=== PATIENT | male | born 1965 | race Caucasian/White ===

== ENCOUNTER 2019-08-02 08:41 | Day surgery (SDC) | payer BC, OTHER ==
[~2019-08-02 08:41] MED LIST: DEXAMETHASONE SOD PHOSPHATE 10 MG/ML 1 ML VIAL IV ONE; FAMOTIDINE 20 MG/2 ML VIAL IV ONE; HYDROmorphone 0.5 MG/0.5 ML SYRINGE IVP PRN; LACTATED RINGERS 1,000 ML IV SCH; LIDOCAINE 1% (10MG/ML) FOR IV START INTRADERMA PRN; ONDANSETRON 4 MG/2 ML VIAL IVP ONE; metroNIDAZOLE-NS PMX 500 MG in SALINE 1 100ML.BAG IVPB ONE
[2019-08-02 09:04] VITALS: TEMP 97.2
[2019-08-02] MEDS ORDERED: PROPOFOL 10 MG/ML 20 ML VIAL IV ONE (10:20)
[2019-08-02] MEDS ORDERED: LIDOCAINE 1% INJ 10MG/ML (20 ML MDV) ONE (10:20)
[2019-08-02] MEDS ORDERED: MIDAZOLAM 2 MG/2 ML VIAL ONE (10:20)
[2019-08-02] MEDS ORDERED: fentaNYL (PF) 50 MCG/ML 2 ML AMP ONE (10:20)
[2019-08-02] MEDS ORDERED: SUCCINYLCHOLINE CHLORIDE 100 MG/5 ML SYR IV ONE (10:20)
[2019-08-02] MEDS ORDERED: LIDOCAINE 1%-EPI 1:100,000 20 ML VIAL SQ ONE ×2 (10:50)
--- NOTE | 2019-08-02 11:20 | P.OP ---
Date of Procedure: 08/02/19 Preoperative Diagnosis: Soft palate mass, right side Postoperative Diagnosis: Same Procedure(s) Performed: Excision of a 1.1 cm right soft palate mass with mucosal flap closure Anesthesia: CELESTINAA Surgeon: Wali Harper Estimated Blood Loss (ml): 5 Pathology: other (Soft palate mass) Condition: stable Disposition: PACU Indications for Procedure: Patient developed a mass of the right soft palate which is been problematic. He is requesting have this removed. He's concerned about possible malignancy. Operative Findings: Mass right soft palate verruca soon etiology Description of Procedure: Patient was taken to the operative room and placed in the supine position. A general inhalation anesthetic was administered and the patient was monitored throughout the entire case by the department of anesthesia and was intubated. The mouth was opened with a McIvor mouthgag utilizing a #3 blade. This mass was identified and grasped with a DeBakey's. We anesthetized the area with lidocaine and Marcaine combination and we excised the lesion with use of cauterization leaving a defect of the soft palate. We then elevated posterior and anterior advancement flaps and then mucosal flaps were rotated and closed with use of a 5.0 rapid Vicryl. Excellent closure was obtained the patient tolerated this well and follow-up will be in the office in 1 week.
[2019-08-02] MEDS ORDERED: ACETAMINOPHEN TAB 500 MG TAB PO ONE (12:30)
[2019-08-02] MEDS ORDERED: MELOXICAM 7.5 MG TAB PO ONE (12:31)
[2019-08-02 13:02] VITALS: BP 118/64; PULSE 70; RESP 20
== END 2019-08-02 12:55 | disposition home or self-care (01) ==
LOC: OR 08:41
PROVIDERS: ATTEND Otolaryngology
DX: D10.39 Benign neoplasm of other parts of mouth (principal); J34.2 Deviated nasal septum; J34.3 Hypertrophy of nasal turbinates; J31.0 Chronic rhinitis; Z87.891 Personal history of nicotine dependence; Z79.899 Other long term (current) drug therapy; Z98.890 Other specified postprocedural states; Z79.1 Long term (current) use of non-steroidal anti-inflammatories (NSAID); Z90.89 Acquired absence of other organs; Z82.49 Family history of ischemic heart disease and other diseases of the circulatory system; Z83.79 Family history of other diseases of the digestive system; Z80.9 Family history of malignant neoplasm, unspecified
CPT/HCPCS: 88305; 40814; J2250; J1100; J2405; J2001; J3010; J0330; J2704

== ENCOUNTER 2021-02-13 13:15 | Emergency (ER) | payer BC, OTHER ==
[2021-02-13 13:22] VITALS: TEMP 98
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
[2021-02-13 14:33] VITALS: BP 123/78; PULSE 74; RESP 20
== END 2021-02-13 14:33 | disposition home or self-care (01) ==
LOC: EC 13:15
DX: R51.9 Headache, unspecified (principal); V49.50XA Passenger injured in collision with unspecified motor vehicles in traffic accident, initial encounter; Y92.410 Unspecified street and highway as the place of occurrence of the external cause
CPT/HCPCS: 70450; 99284

== ENCOUNTER → 2022-12-08 | Outpatient (CLI) | payer BC ==
--- NOTE | 2022-12-08 17:48 | P.SLEEP ---
History of Present Illness DATE: 12/08/2022 CONSULTATION/NEW PATIENT EVALUATION HISTORY OF PRESENT ILLNESS/SLEEP-WAKE EVALUATION: 57 year old gentleman had been evaluated in the sleep center for possible obstructive sleep apnea hypopnea syndrome. SLEEP SCHEDULE: Usually sleep schedule from 10:20 PM until 6 AM on weekdays and from 11 PM to 8 AM on weekend. FALLING ASLEEP: No problems with falling asleep. DURING SLEEP: Patient has loud snoring and witnessed episodes of stop breathing during the sleep. Patient wakes up from sleep 2 times with one episode of nocturia, episodes of dry mouth, heartburn and gasping for air. No history of hypnogogical hallucinations, sleep paralysis, or cataplexy. DURING THE DAY/WAKE STATE: During the day patient may have episodes of irritability, anxiety. [place] sleepiness scale is 8. Patient usually doesn't take naps. PAST MEDICAL HISTORY: Acid reflux, throat and skin cancer- basal cell carcinoma. PAST SURGICAL HISTORY: Surgical treatment of throat cancer and skin cancer. MEDICATIONS: Fluticasone, tadalafeel. SOCIAL HISTORY: Positive history of smoking for 15 pack years, quit in 1998, alcohol consumption occasional. FAMILY HISTORY:Hypertension, heart problems, insomnia, arthritis. REVIEW OF SYSTEMS:Snoring, awakenings from sleep with nocturia. No fevers. No double vision. No recent chest pain. No shortness of breath. No abdominal pain. No bleeding episodes. No blood in urine. No seizure episodes. PHYSICAL EXAMINATION: GENERAL: A pleasant patient without any distress. VITAL SIGNS: BP 114/73 , HR 85 , RR 12 , weight 225 pounds, height 5 foot 10.5 inches, body mass index 31.6 . HEENT: JOE, EOMI. Evaluation of oropharynx showed tongue protrudes midline, low position of soft palate Mallampati 4, retrognathia 23 millimeters. NECK: Supple. No JVD. Thyroid is not palpable. 18 inches in circumference. LUNGS: Clear to percussion and to auscultation. Good air exchange. No wheezing or rhonchi. HEART: S1, S2 regular. No murmurs, gallops or rubs. ABDOMEN: Soft and nontender. Bowel sounds are present. No organomegaly appreciated. EXTREMITIES: No clubbing or cyanosis. MANAGER PHILOSOPHY: Awake, alert, and oriented x3. Cranial nerves 2 to 7 intact. There is no fasciculation or atrophy noted. No focal deficits observed. ASSESSMENT: 1. Snoring, witnessed episodes of stop breathing during the sleep, awakenings from sleep, low position of soft palate Mallampati 4, wide neck 18 inches in circumference. Obstructive sleep apnea hypopnea syndrome. 2. History of throat cancer, status post surgical treatment. 3. Acid reflux. 4. History of basal cell carcinoma of the skin, status post surgical treatment. PLAN: 1. Home sleep apnea test for evaluation of patient's breathing during sleep. 2. CPAP/BiPAP titration if sleep study confirms obstructive sleep apnea- hypopnea syndrome. 3. Preferable position during sleep on the side. 4. No driving if patient feels any sleepiness. Patient is aware of civil and criminal liability for unsafe driving. 5. Sleep hygiene with regular sleep time for at least 7.5-8 hours. 6. Watching and losing weight. Thank you very much for referring this patient for consultation. Sincerely, Benjamín Stiles MD, PhD, FAASM. Diplomat of [place] [employer], Sleep Medicine Board by [place] [place] [employer] Nuclear Reactor Technician of [facility] [place] Past Medical History Past Medical History: No Reported History Additional Past Medical History / Comment(s): seasonal allergies History of Any Multi-Drug Resistant Organisms: None Reported Past Surgical History: Orthopedic Surgery, Tonsillectomy Additional Past Surgical History / Comment(s): vasectomy, left hand sx, right tib/fib Past Anesthesia/Blood Transfusion Reactions: Motion Sickness Past Psychological History: No Psychological Hx Reported Smoking Status: Former smoker Past Alcohol Use History: Occasional Past Drug Use History: None Reported - Past Family History Mother Family Medical History: Cancer Additional Family Medical History / Comment(s): BREAST CANCER Medications and Allergies Home Medications Medication Instructions Recorded Confirmed Type Ibuprofen 200 - 400 mg PO Q6H PRN 08/01/19 08/01/19 History tadalafiL [Cialis] 20 mg PO DIRECTED PRN 08/01/19 08/01/19 History Amoxicillin 2 cap PO Q8H #60 capsule 08/02/19 Rx Meloxicam [Mobic] 15 mg PO DAILY #10 tab 08/02/19 Rx dexAMETHasone [Dexamethasone] 6 mg PO DIRECTED #2 tablet 08/02/19 Rx Allergies Allergy/AdvReac Type Severity Reaction Status Date / Time No Known Allergies Allergy Verified 02/13/21 13:23 Sleep Note - Sleep Note Sleep Note: Temperature: Pulse Rate: Respiratory Rate: Blood Pressure: SpO2: Height: Weight: BMI: Neck Circumference:
== END ==
LOC: 3 N SLEEP 15:09
PROVIDERS: ATTEND Internal Medicine
DX: G47.33 Obstructive sleep apnea (adult) (pediatric) (principal); K21.9 Gastro-esophageal reflux disease without esophagitis; Z85.21 Personal history of malignant neoplasm of larynx; Z98.890 Other specified postprocedural states; Z85.828 Personal history of other malignant neoplasm of skin; Z87.891 Personal history of nicotine dependence
CPT/HCPCS: 99211

== ENCOUNTER 2023-03-15 19:32 | Outpatient (CLI) | payer BC ==
--- NOTE | 2023-03-16 18:00 | P.PCN ---
Description of Procedure: CLINICAL: Titration with positive air pressure has been done for correction of respiratory abnormalities during sleep. DESCRIPTION OF PROCEDURE: The standard montage for clinical polysomnography included the electroencephalogram, the electrocardiogram, the mentalis surface electromyography and Lead II cardiography. The respiratory battery consisted of measurements of nasal /buccal air flow, pressure transducer measurements from the nose, thoracic and /or abdominal effort and intercostal surface electromyography. Video monitoring has been done to check for any parasomnia events. Nocturnal oxyhemoglobin saturations were obtained by finger oximetry. Step-brown titration with positive airway pressure was utilized to control respiratory events. Raw data of sleep recording has been reviewed and is adequate. RESULTS: Sleep efficiency was practically normal 88.3 %. Latency to sleep onset was normal 24.0 minutes.]. Sleep architecture showed stage N1 was slightly increased to 11.3 %, Delta sleep was absent 0 %, REM sleep was borderline high 26.7 %. Heart rate was minimum 59 BPM, maximum 72 BPM, average 65 BPM. EMG showed 0.8 periodic limb movements per hour. PAP titration have been done with CPAP up to the pressure 12 cm H2O. The best results were at the pressure 12 cm H2O. Apnea hypopnea index reduced to 1.2. IMPRESSION: 1. Obstructive sleep apnea hypopnea syndrome on controle with PAP treatment. 2. No significant periodic limb movements have been documented. Please see other impressions from consultation. PLAN: 1. The patient will have treatment with positive air pressure equipment with the level of pressure AutoPAP 5-12 cm H2O and should use it every night for the whole night. 2. Watching weight. 3. Sleep hygiene with regular time in bed for at least 8 hours. 4. No driving if feeling any sleepiness. 5. I will see the patient for follow up visit to explain the results of the test, recommendations, check compliance with treatment and make any necessary adjustment related to mask fitting, pressure and humidification. Thank you very much for allowing me to participate in the management of your patient. Sincerely, Benjamín Stiles MD, PhD, FAASM Diplomat of [place] [employer] Sleep Medicine Board of [place] [employer] Research Statistician of [facility] [place]
== END 2023-03-16 05:30 | disposition home or self-care (01) ==
LOC: 3 N SLEEP 19:32
PROVIDERS: ATTEND Internal Medicine
DX: G47.33 Obstructive sleep apnea (adult) (pediatric) (principal); Z87.891 Personal history of nicotine dependence
CPT/HCPCS: 95811